=== PATIENT | female | born 1955 | race Caucasian/White ===

== ENCOUNTER 2021-11-19 20:30 | Emergency (ER) | payer MEDICARE ==
[2021-11-19] MEDS ORDERED: SIMVASTATIN20 M1 PO (20:46)
[2021-11-19] MEDS ORDERED: MIRAPEX1 MG PO (20:47)
[2021-11-19] MEDS ORDERED: LISINOPRIL2.5 MG PO (20:48)
[2021-11-19] MEDS ORDERED: GLUCOPHAGE PO (20:48)
[2021-11-19] MEDS ORDERED: OMEPRAZOLE40 MG PO (20:49)
[2021-11-19 21:28] LABS: BASO # 0.03 K/mm3 (0.02-0.10); EOS # 0.33 K/mm3 (0.04-0.40); EOS % 3.6 % (1.0-5.0); HEMATOCRIT 40.3 % (37.0-47.0); HEMOGLOBIN 14.2 g/dL (12.5-16.0); LYMPH# 1.69 K/mm3 (1.50-4.00); MEAN CELL VOLUME 91 fl (78-100); MEAN CORPUSCULAR HEMOGLOBIN 32 pg (27-31); MEAN CORPUSCULAR HGB CONC 35 g/dL (33-37); MEAN PLATELET VOLUME 9.2 fl (7.4-10.4); MONO # 0.58 K/mm3 (0.20-0.80); NEU # 6.61 K/mm3 (1.40-6.50); PLATELET COUNT 167 K/mm3 (130-400); RED BLOOD COUNT 4.45 M/mm3 (4.10-5.30); RED CELL DISTRIBUTION WIDTH 11.7 % (11.5-14.5); WHITE BLOOD COUNT 9.3 K/mm3 (4.8-10.8)
[2021-11-19 21:39] LABS: POTASSIUM 3.7 mmol/L (3.5-5.1)
[2021-11-19 21:40] LABS: CALCIUM 9.7 mg/dL (8.3-10.5)
[2021-11-19] MEDS ORDERED: PREDNISONE20 M1 PO (22:16)
[2021-11-19 22:31] VITALS: BP 133/81
== END 2021-11-19 22:32 | disposition home or self-care (01) ==
LOC: ED 20:30
PROVIDERS: Family Medicine
DX: J45.909 Unspecified asthma, uncomplicated (principal); E11.9 Type 2 diabetes mellitus without complications
CPT/HCPCS: J7512